=== PATIENT | male | born 1995 | race Two or more races ===

== ENCOUNTER 2019-12-01 08:58 | Day surgery (SDC) | payer OTHER | END 2019-12-01 15:12 | disposition home or self-care (01) | LOC: AMB-ENDOS 08:58 → ADM 13:15 → AMB-ENDOS 13:15 | PROVIDERS: ATTEND Colon & Rectal Surgery | DX: K62.89 Other specified diseases of anus and rectum (principal); K58.1 Irritable bowel syndrome with constipation; K64.1 Second degree hemorrhoids ==

== ENCOUNTER 2020-05-08 08:26 | Outpatient (CLI) | payer OTHER | END 2020-05-08 08:46 | disposition home or self-care (01) | LOC: RX STUDY 08:26 | PROVIDERS: ATTEND Colon & Rectal Surgery | DX: K66.0 Peritoneal adhesions (postprocedural) (postinfection) (principal) ==

== ENCOUNTER 2020-06-19 11:30 | Inpatient (IN) | payer OTHER ==
[~2020-06-19] VITALS: Ht 175.3 cm; Wt 56.7 kg
== END 2020-06-28 16:43 | disposition home or self-care (01) | DRG 337 ==
LOC: EDSTATUS 11:30 → ADM 11:30 → O/R 06-26 04:54 → SURG 06-26 04:54 → SURH 06-26 11:30 → SURG 06-28 16:43
PROVIDERS: ADMIT Colon & Rectal Surgery; ATTEND Colon & Rectal Surgery
PROC: 0DN84ZZ Release Small Intestine, Percutaneous Endoscopic Approach (ICD-10-PCS; 2020-06-26)
PROC: 0DB84ZX Excision of Small Intestine, Percutaneous Endoscopic Approach, Diagnostic (ICD-10-PCS; principal; 2020-06-26 12:00)
DX: K56.51 Intestinal adhesions [bands], with partial obstruction (principal); K58.9 Irritable bowel syndrome, unspecified

== ENCOUNTER 2021-01-03 08:57 | Outpatient (CLI) | payer OTHER | END 2021-01-03 09:02 | disposition home or self-care (01) | LOC: RX STUDY 08:57 | PROVIDERS: ATTEND Colon & Rectal Surgery | DX: K66.0 Peritoneal adhesions (postprocedural) (postinfection) (principal); K56.699 Other intestinal obstruction unspecified as to partial versus complete obstruction ==